=== PATIENT | male | born 1965 | race Two or more races ===

== ENCOUNTER 2019-06-14 19:03 | Emergency (ER) | payer SELFPAY ==
[~2019-06-14] VITALS: Ht 160 cm; Wt 78.0 kg
[2019-06-14 19:16] VITALS: Ht 160 cm; Wt 78.0 kg
[2019-06-14 21:17] LABS: microscopic required? NO
[2019-06-14 21:35] LABS: BASOPHIL % 0.7 % (0-2); PLATELET COUNT 91 x10^3mcL (130-400); RED CELL DISTRIBUTION WIDTH 12.1 % (11.5-14.5)
[2019-06-14 21:46] LABS: CALCIUM 8.6 mg/dL (8.5-10.1); CARBON DIOXIDE 27.6 mmol/L (21-32); CREATININE SERUM 0.7 mg/dL (0.7-1.3); GFR1 > 60 mL/min; GLUCOSE SERUM 111 mg/dL (74-106)
[2019-06-14 22:13] LABS: urine erythrocyte NEGATIVE (NEGATIVE)
[2019-06-14 22:34] LABS: CHLORIDE SERUM 97 mmol/L (98-107); POTASSIUM SERUM 3.7 mmol/L (3.5-5.1); SODIUM SERUM 131 mmol/L (136-145)
[2019-06-15 00:02] VITALS: BP 117/73
== END 2019-06-15 00:02 | disposition home or self-care (01) ==
LOC: ED 19:03
PROVIDERS: Emergency Medicine
DX: M54.5 Low back pain (principal); E11.9 Type 2 diabetes mellitus without complications; E78.00 Pure hypercholesterolemia, unspecified
CPT/HCPCS: 36415; J1885